=== PATIENT | male | born 1940 | race Caucasian/White ===

== ENCOUNTER → 2023-04-28 13:10 | Outpatient (CLI) | payer OTHER, SELFPAY | PROVIDERS: PCP Emergency Medicine; Visit Provider Specialist | DX: R35.1 Nocturia (principal); N40.1 Benign prostatic hyperplasia with lower urinary tract symptoms; Z87.442 Personal history of urinary calculi; Z87.448 Personal history of other diseases of urinary system | CPT/HCPCS: 51798; 81002; 87077; 87086; 87186; 99215 ==